=== PATIENT | male | born 1995 | race Caucasian/White ===

== ENCOUNTER 2020-12-24 12:23 | Emergency (ER) | payer OTHER ==
[~2020-12-24] VITALS: Ht 175.2 cm; Wt 150.0 kg
[2020-12-24 12:59] LABS: BASOPHILS % (AUTO) 1 % (0-10); EOSINOPHILS % (AUTO) 0 % (0-10); HEMATOCRIT 34 % (40-54); HEMOGLOBIN 11.5 g/dL (13.3-17.7); LYMPHOCYTES # (AUTO) 0.3 10^3/uL (1.0-4.0); LYMPHOCYTES % (AUTO) 5 % (12-44); MEAN CORPUSCULAR HEMOGLOBIN 33 pg (25-34); MEAN CORPUSCULAR HGB CONC 34 g/dL (32-36); MEAN CORPUSCULAR VOLUME 96 fL (80-99); MEAN PLATELET VOLUME 9.1 fL (9.0-12.2); MONOCYTES # (AUTO) 0.6 10^3/uL (0.0-1.0); MONOCYTES % (AUTO) 12 % (0-12); NEUTROPHILS # (AUTO) 4.5 10^3/uL (1.8-7.8); NEUTROPHILS % (AUTO) 82 % (42-75); PLATELET COUNT 187 10^3/uL (130-400); WHITE BLOOD COUNT 5.5 10^3/uL (4.3-11.0)
[2020-12-24] MEDS ORDERED: ONDANSETRON 4 MG/2 ML (SDV) Z0FRAN IVP ONE ×2 (13:00→21:00)
[2020-12-24] MEDS ORDERED: ACETAMINOPHEN 500 MG TAB (TYLENOL) PO ONE (13:00)
[2020-12-24] MEDS ORDERED: fentaNYL INJ 100 MCG/2 ML AMP IVP ONE ×3 (13:00→21:30)
[2020-12-24] MEDS ORDERED: LOPERAMIDE 2 MG (IMODIUM) TABLET PO ONE (13:00)
[2020-12-24] MEDS ORDERED: LACTATED RINGERS 1,000 ML IV ONE (13:00)
[2020-12-24] MEDS ORDERED: FAMOTIDINE 20MG/2ML IV (PEPCID) IVP ONE (13:00)
[2020-12-24 13:15] LABS: ALBUMIN 3.9 GM/DL (3.2-4.5); POTASSIUM 3.9 MMOL/L (3.6-5.0)
[2020-12-24 13:18] LABS: TOTAL PROTEIN 6.7 GM/DL (6.4-8.2)
[2020-12-24 13:19] LABS: BILIRUBIN,TOTAL 0.6 MG/DL (0.1-1.0)
[2020-12-24 13:20] LABS: FIBRIN DEGRADATION PRODUCTS 0.45 UG/ML (0.00-0.49)
[2020-12-24 13:21] LABS: CREATININE SERUM 2.49 MG/DL (0.60-1.30)
[2020-12-24 13:24] LABS: MAGNESIUM 1.8 MG/DL (1.6-2.4)
[2020-12-24 13:34] LABS: LYMPHOCYTES % (MANUAL) 3 %; MONOCYTES % (MANUAL) 7 %; NEUTROPHILS % (MANUAL) 90 %; RBC MORPH NORMAL
--- NOTE | 2020-12-24 13:38 | Diagnostic Imaging Report ---
INDICATION: Covid positive sepsis. AP view of the chest is obtained. COMPARISON: No previous study is available for comparison at this time. FINDINGS: Heart size and pulmonary vasculature are within normal limits, and the lungs are clear, bilaterally. IMPRESSION: Unremarkable chest. Dictated by: Dictated on workstation # [id number]
[2020-12-24] MEDS ORDERED: NS IV 1000 ML 1,000 ML IV SCH ×2 (15:15→20:45)
[2020-12-24 15:41] LABS: BILIRUBIN,URINE NEGATIVE (NEGATIVE); CLARITY,URINE CLEAR; COLOR,URINE YELLOW; GLUCOSE, URINE (UA) NEGATIVE (NEGATIVE); KETONES,URINE NEGATIVE (NEGATIVE); LEUKOCYTE ESTERASE ,URINE NEGATIVE (NEGATIVE); NITRITE,URINE NEGATIVE (NEGATIVE); PROTEIN,URINE 3+ (NEGATIVE)
[2020-12-24 15:51] LABS: BACTERIA,URINE NEGATIVE /HPF
--- NOTE | 2020-12-24 15:58 | Diagnostic Imaging Report ---
CLINICAL INDICATION: Patient with IgA nephropathy. Patient COVID positive. Patient with shortness of air, abdominal pain, nausea, vomiting, and diarrhea x2 days. EXAM: Axial CT scan of the abdomen and pelvis performed without IV or enteric contrast. Coronal and sagittal reformatted images are created. Auto Exposure Controls were utilized during the CT exam to meet ALARA standards for radiation dose reduction. COMPARISON: None. FINDINGS: There are partially visualized patchy areas of consolidation and ground-glass opacification involving both lung bases concerning for infectious process. There is a 1.6 cm centrally lucent, peripherally sclerotic area involving the proximal left femoral head/neck junction region anteriorly. This may represent a synovial pit versus other abnormality. There is diffuse low-density seen throughout the liver concerning for diffuse fatty infiltration. Liver is otherwise unremarkable. The spleen, pancreas, gallbladder, and adrenal glands are unremarkable. Both kidneys are unremarkable with no mass, hydronephrosis, or stone. There is no intra-abdominal free air or free fluid. The bladder is fluid filled and unremarkable. Prostate gland is unremarkable. Appendix is unremarkable. There is decompressed appearance throughout the colon noted with mild wall thickening. There is no lymphadenopathy. There is no intestinal obstruction. Stomach is also predominantly decompressed. The extra-abdominal and extrapelvic soft tissue structures are unremarkable. IMPRESSION: 1: There are patchy areas of consolidation and ground-glass opacification involving both lung bases concerning for pneumonia. 2: There is decompressed appearance throughout the colon with wall thickening. This may be related to decompressed state. 3: There is a 1.6 cm centrally lucent and peripherally sclerotic area involving the left femoral head/neck junction region. A synovial pit or osteoid osteoma may be considered. MRI of the left hip with and without contrast would help better evaluate. Also comparison to remote imaging would help better evaluate for chronicity. 4: Diffuse fatty infiltration of the liver. Dictated by: Dictated on workstation # [id number]
[2020-12-24] MEDS ORDERED: CEFEPIME INJECTION 2,000 MG in WATER (STERILE) FOR INJECTION 20 ML IV ONE (16:15)
[2020-12-24] MEDS ORDERED: PROMETHAZINE INJ 25 MG/ML (PHENERGAN) AMP IVP ONE ×2 (17:00→21:45)
[2020-12-24] MEDS ORDERED: AZITHROMYCIN INJECTION 500 MG in NS (IVPB) 250 ML IV ONE (18:00)
--- NOTE | 2020-12-24 18:56 | ED General ---
General Chief Complaint: Fever-Adult/Adol Stated Complaint: COVID+ Nursing Triage Note: Pt ambulatory into ER with complaint of being Covid+, SOA, Abd. Pain, N/V/D x2 days. Pt states that he tested postive yesterday after having symptoms. Pt states that he was trying to go to [facility] to try to get some oral zofran, but started vomiting profusely so he came to ER. Source of Information: Patient Exam Limitations: No Limitations (TIFFANY CERRATO MD) History of Present Illness Date Seen by Provider: Dec 24, 2020 Time Seen by Provider: 12:45 Initial Comments This 25-year-old gentleman presents to the emergency room with complaints of fever, nausea, vomiting, diarrhea, and central abdominal pain for the past 2 days. He tested positive for COVID-19 in the outpatient clinic yesterday. He was fully vaccinated in July but is immunocompromise due to prednisone use. He takes multiple medications for IgA nephropathy including prednisone. He is fairly new to the area. 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 He is febrile and tachycardic at this time and is struggling with diarrhea. He has some shortness of breath and cough but he is not hypoxic at this time. (TIFFANY CERRATO MD) Allergies and Home Medications Allergies Coded Allergies: No Known Drug Allergies (Unverified , 12/24/20) Patient Home Medication List Home Medication List Reviewed: Yes (TIFFANY CERRATO MD) Review of Systems Review of Systems Constitutional: see HPI EENTM: no symptoms reported Respiratory: see HPI Cardiovascular: see HPI Gastrointestinal: see HPI Genitourinary: see HPI Musculoskeletal: no symptoms reported Skin: no symptoms reported Psychiatric/Neurological: No Symptoms Reported Hematologic/Lymphatic: No Symptoms Reported Immunological/Allergic: see HPI (TIFFANY CERRATO MD) Past Kayodks-Lzigui-Jmlgci Hx Patient Social History Tobacco Use?: No Use of E-Cig and/or Vaping dev: No Substance use?: No Alcohol Use?: No Pt feels they are or have been: No (TIFFANY CERRATO MD) Immunizations Up To Date Influenza Vaccine Up-to-Date: No; Not Current Second COVID19 Vaccination Kurtis: July 2020 COVID19 Vaccine 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: [employer] (TIFFANY CERRATO MD) Past Medical History Surgeries: Yes (Renal biopsy) Respiratory: No Cardiac: No Neurological: No Reproductive Disorders: No Genitourinary: Yes (Continue nephropathy) Gastrointestinal: No Musculoskeletal: No Endocrine: Yes (Morbid obesity) HEENT: No Cancer: No Psychosocial: No Integumentary: No (TIFFANY CERRATO MD) Physical Exam-Suspected Sepsis Physical Exam Vital Signs Vital Signs - First Documented 12/24/20 12/25/20 12:28 13:34 Temp 36.6 Pulse 126 Resp 20 B/P (MAP) 129/97 (108) Pulse Ox 93 O2 Delivery Room Air O2 Flow Rate 1.00 (RANGEL ODOM MD) Vital Signs Capillary Refill : Less Than 3 Seconds (TIFFANY CERRATO MD) Blood Pressure Mean: 108 Height, Weight, BMI Height: '" Weight: lbs. oz. kg; 48.00 BMI Method: General Appearance: WD/WN, Mild Distress, Obese HEENT: PERRL/EOMI, Normal ENT Inspection, Other (Oropharynx somewhat dry) Neck: Normal Inspection Respiratory: Lungs Clear, No Accessory Muscle Use, No Respiratory Distress; No Crackles; Decreased Breath Sounds; No Wheezing Cardiovascular: No Edema, Normal Peripheral Pulses, Tachycardia Gastrointestinal: Normal Bowel Sounds, Soft; No Distended; Tenderness (Generalized central abdominal tenderness) Extremity: Normal Inspection, No Pedal Edema Neurologic/Psychiatric: Alert, Oriented x3, No Motor/Sensory Deficits, Normal Mood/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, 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 Norm as Tested Skin: normal color, warm/dry (TIFFANY CERRATO MD) Focused Exam Lactate Level 12/24/20 12:46: Lactic Acid Level 1.31 (RANGEL ODOM MD) Progress/Results/Core Measures Suspected Sepsis SIRS Temperature: Pulse: 126 Respiratory Rate: 20 Laboratory Tests 12/24/20 12:46: White Blood Count 5.5 12/25/20 03:15: White Blood Count 4.9 Blood Pressure 129 /97 Mean: 108 12/24/20 12:46: Lactic Acid Level 1.31 Laboratory Tests 12/24/20 12:46: Creatinine 2.49H, INR Comment 1.0, Platelet Count 187, Total Bilirubin 0.6 12/25/20 03:15: Creatinine 2.40H, Platelet Count 154, Total Bilirubin 0.4 (TIFFANY CERRATO MD) Results/Orders Lab Results Laboratory Tests Test 12/24/20 12:46 12/24/20 15:34 12/25/20 03:15 Range/Units White Blood Count 5.5 4.9 4.3-11.0 10^3/uL Red Blood Count 3.52 L 3.04 L 4.30-5.52 10^6/uL Hemoglobin 11.5 L 9.9 L 13.3-17.7 g/dL Hematocrit 34 L 30 L 40-54 % Mean Corpuscular Volume 96 97 80-99 fL Mean Corpuscular Hemoglobin 33 33 25-34 pg Mean Corpuscular Hemoglobin Concent 34 33 32-36 g/dL Red Cell Distribution Width 15.0 H 14.9 H 10.0-14.5 % Platelet Count 187 154 130-400 10^3/uL Mean Platelet Volume 9.1 8.7 L 9.0-12.2 fL Immature Granulocyte % (Auto) 1 1 % Neutrophils (%) (Auto) 82 H 84 H 42-75 % Lymphocytes (%) (Auto) 5 L 5 L 12-44 % Monocytes (%) (Auto) 12 10 0-12 % Eosinophils (%) (Auto) 0 0 0-10 % Basophils (%) (Auto) 1 0 0-10 % Neutrophils # (Auto) 4.5 4.1 1.8-7.8 10^3/uL Lymphocytes # (Auto) 0.3 L 0.2 L 1.0-4.0 10^3/uL Monocytes # (Auto) 0.6 0.5 0.0-1.0 10^3/uL Eosinophils # (Auto) 0.0 0.0 0.0-0.3 10^3/uL Basophils # (Auto) 0.0 0.0 0.0-0.1 10^3/uL Immature Granulocyte # (Auto) 0.1 0.1 0.0-0.1 10^3/uL Neutrophils % (Manual) 90 82 % Lymphocytes % (Manual) 3 4 % Monocytes % (Manual) 7 5 % Blood Morphology Comment NORMAL Prothrombin Time 14.0 12.2-14.7 SEC INR Comment 1.0 0.8-1.4 Activated Partial Thromboplast Time 41 H 24-35 SEC D-Dimer 0.45 0.00-0.49 UG/ML Sodium Level 142 136 135-145 MMOL/L Potassium Level 3.9 4.1 3.6-5.0 MMOL/L Chloride Level 105 105 98-107 MMOL/L Carbon Dioxide Level 19 L 17 L 21-32 MMOL/L Anion Gap 18 H 14 5-14 MMOL/L Blood Urea Nitrogen 19 H 17 7-18 MG/DL Creatinine 2.49 H 2.40 H 0.60-1.30 MG/DL Estimat Glomerular Filtration Rate 32 33 BUN/Creatinine Ratio 8 7 Glucose Level 106 H 78 70-105 MG/DL Lactic Acid Level 1.31 0.50-2.00 MMOL/L Calcium Level 9.0 8.2 L 8.5-10.1 MG/DL Corrected Calcium 9.1 8.6 8.5-10.1 MG/DL Magnesium Level 1.8 1.6-2.4 MG/DL Total Bilirubin 0.6 0.4 0.1-1.0 MG/DL Aspartate Amino Transf (AST/SGOT) 36 H 134 H 5-34 U/L Alanine Aminotransferase (ALT/SGPT) 58 H 155 H 0-55 U/L Alkaline Phosphatase 27 L 25 L 40-136 U/L C-Reactive Protein High Sensitivity 17.04 H 18.82 H 0.00-0.50 MG/DL Total Protein 6.7 5.9 L 6.4-8.2 GM/DL Albumin 3.9 3.5 3.2-4.5 GM/DL Lipase 63 8-78 U/L Procalcitonin 57.26 H 79.04 H <0.10 NG/ML Urine Color YELLOW Urine Clarity CLEAR Urine pH 6.0 5-9 Urine Specific [place] >=1.030 1.016-1.022 Urine Protein 3+ H NEGATIVE Urine Glucose (UA) NEGATIVE NEGATIVE Urine Ketones NEGATIVE NEGATIVE Urine Nitrite NEGATIVE NEGATIVE Urine Bilirubin NEGATIVE NEGATIVE Urine Urobilinogen 0.2 < = 1.0 MG/DL Urine Leukocyte Esterase NEGATIVE NEGATIVE Urine RBC (Auto) 3+ H NEGATIVE Urine RBC 2-5 H /HPF Urine WBC NONE /HPF Urine Squamous Epithelial Cells NONE /HPF Urine Crystals NONE /LPF Urine Bacteria NEGATIVE /HPF Urine Casts NONE /LPF Urine Mucus NEGATIVE /LPF Urine Culture Indicated CULTURE PENDING Band Neutrophils 9 % Microcytosis SLIGHT Macrocytosis SLIGHT (RANGEL ODOM MD) Micro Results Microbiology 12/24/20 Urine Culture - Final, Complete NO GROWTH 12/24/20 Blood Culture - Preliminary, Resulted No growth 12/24/20 Blood Culture - Preliminary, Resulted No growth (RANGEL ODOM MD) My Orders Orders - RANGEL ODOM MD Ns Iv 1000 Ml (Sodium Chloride 0.9%) (12/24/20 20:45) Ondansetron Injection (Zofran Injectio (12/24/20 21:00) Fentanyl Inj (Sublimaze Injection) (12/24/20 21:26) Promethazine Injection (Phenergan Injec (12/24/20 21:45) Ns Iv 500 Ml (Sodium Chloride 0.9%) (12/24/20 21:45) Lorazepam Injection (Ativan Injection) (12/24/20 23:19) Lorazepam Injection (Ativan Injection) (12/24/20 23:21) Fentanyl Inj (Sublimaze Injection) (12/25/20 01:00) Ns Iv 1000 Ml (Sodium Chloride 0.9%) (12/25/20 01:15) Hyoscyamine Sl Tablet (Levsin Sl Tablet) (12/25/20 01:15) Diphenhydramine Tablet (Benadryl Tablet) (12/25/20 03:00) Cbc With Automated Diff (12/25/20 04:00) Comprehensive Metabolic Panel (12/25/20 04:00) Procalcitonin (Pct) (12/25/20 04:00) Manual Differential (12/25/20 03:15) Ibuprofen Tablet (Motrin Tablet) (12/25/20 04:15) Cefepime Injection (Maxipime Injection) (12/25/20 04:15) Promethazine Injection (Phenergan Injec (12/25/20 04:30) Loperamide Tablet (Imodium Tablet) (12/25/20 04:24) Loperamide Tablet (Imodium Tablet) (12/25/20 04:27) Promethazine Injection (Phenergan Injec (12/25/20 04:27) (RANGEL ODOM MD) Medications Given in ED (RANGEL ODOM MD) Vital Signs/I&O (RANGEL ODOM MD) Vital Signs/I&O Capillary Refill : Less Than 3 Seconds (TIFFANY CERRATO MD) Blood Pressure Mean: 108 Progress Note #1: Time: 19:01 Progress Note Patient was seen and evaluated. Septic work-up was pursued. Renal function was found to be near baseline with a GFR of 32. Patient states 32 is typical for him. Tachycardia was treated with IV fluids and Tylenol. Rate has improved significantly after 2 L. Zofran and Phenergan have been used to treat the nausea. Pain was treated with 50 mcg of fentanyl which has caused some hypoxia. He was previously on room air and satting 94% but is now hypoxic after the fentanyl. No source of bacterial infection has been identified. CT findings of the lungs are consistent with COVID-19. No abdominal pathology to explain his pain or fever was identified. There is concern that this patient is immunocompromised and his procalcitonin is 57. There is presumed sepsis. Cefepime and azithromycin have been ordered for empiric treatment. I have discussed this case with Dr. Duff, hospitalist. She is reluctant to admit this patient to our facility due to his nephrology needs. Presently I have not been able to find an accepting facility for transfer. [facility] in [place], [facility] in [facility] and [facility] in [place], [facility], [facility] and [facility] have all declined transfer due to bed capacity. I have enlisted the assistance of the [place] [facility] hotline for the [facility]. They are still working on finding a bed. Case is currently being reviewed by [facility]. Patient is stable at this time. Care of this patient is being transitioned to Dr. Odom at this time. Progress Note #2: Time: 10:55 Progress Note I assumed care of this patient from Dr. Odom at 0600. He is stable at this time but continues to have some mild tachycardia and has been intermittently febrile. Diarrhea has continued through the night. Diarrhea has been managed with Imodium. IV fluids were administered. He has received a second dose of cefepime. I contacted Dr. Cameron, infectious disease specialist at [facility]. We discussed treatment options. She recommended starting remdesivir due to his immunocompromise state and risk factors. She also advised obtaining a tick panel and starting doxycycline. She recommended dexamethasone as patient has been without his steroids for a few days and may need stress dosing of steroids. Finally, she recommended daptomycin for empiric MRSA coverage due to his immunocompromise state. Patient states he actually feels more comfortable than he did yesterday. Oxygen saturations have been normal on low-flow nasal cannula. He has good continued nasal cannula due to desaturations when he sleeps or when he receives pain medications. He had a moderate elevation in his transaminases today as well as a jump in his procalcitonin to 79. Sepsis is presumed although no source of bacterial infection has been identified. Patient is willing to transfer wherever he can receive appropriate care. The [facility] hotline has been working artificially to find him a bed placement. I discussed the case with Dr. Tong at [facility] who has accepted trans claudio. They have nephrology and dialysis services at this facility. (TIFFANY CERRATO MD) Progress Note #1: Time: 20:57 Progress Note I did speak again with [facility] and at 2011 got a declination from the [facility]. At 2034 [facility] in [place] declined. 2051 [facility] transfer [facility] out of [place] called and they are speaking with their physician about the possibility of a bed at one of their campuses in [place]. Pending a return call at this time. Patient remains tachycardic. Blood pressure is good. He is getting a repeat dose of 8 mg of Zofran currently on another liter of fluids. 2139 Patient got his third liter of fluids and 8 mg of Zofran. Was notified by the nurse that he is continuing to have nausea and vomiting. Will order a little bit more fluid, 500 cc of normal saline and 25 mg of Phenergan IV to try and alleviate his symptoms. 108 Patient checked on after having called out multiple times for pain medicine for his abdomen pain. Patient is continuing to be nauseated its been almost 4 hours since he had Phenergan. He was given a little Ativan a couple of hours ago. Starting him on some maintenance fluids normal saline 125 cc an hour. Going to give him some Levsin as well as another dose of fentanyl. He still little tachycardic but in no respiratory distress. Still pending acceptance at an outside facility. [facility] declined him at 2059. At 2254 [place] and [place] said no. They did potentially find a bed in [place] at 2337 however I declined this as this is a 10-hour trip. [place] [facility] stated that they would continue to look every 4 hours at closer hospitals. Progress Note #2: Time: 04:09 Progress Note [place] [facility] checked back in, still no local beds in [facility]. They are going to recheck [place]. Vital signs currently heart rate 126 SPO2 on 2 L 97% respiratory rate 33 temperature 39.2 will give 600 mg of ibuprofen as a.m. labs have shown an increase in liver functions over the night. CO2 on chemistry is a little bit lower currently. Procalcitonin is pending hemoglobin has dropped about a gram. Patient resting comfortably at the moment. (RANGEL ODOM MD) Diagnostic Imaging Diagonstic Imaging: Xray Plain Films/CT/US/NM/MRI: chest Comments [facility] [id number] PT STATUS: REG ER : 1995 PHYSICIAN: TIFFANY CERRATO MD ADMIT DATE: 12/24/20/ER Draft Date of Exam:12/24/20 CHEST 1 VIEW, AP/PA ONLY INDICATION: Covid positive sepsis. AP view of the chest is obtained. COMPARISON: No previous study is available for comparison at this time. FINDINGS: Heart size and pulmonary vasculature are within normal limits, and the lungs are clear, bilaterally. IMPRESSION: Unremarkable chest. Dictated on workstation # [id number] Dict: 12/24/20 1335 Trans: 12/24/20 1337 [facility] [id number] Interpreted by: MIGUEL ROBERTS MD Reviewed: Reviewed by Me Diagonstic Imaging: CT Plain Films/CT/US/NM/MRI: abdomen, pelvis Comments CT viewed by me and report reviewed. See report below: [facility] [id number] PT STATUS: REG ER : 1995 PHYSICIAN: TIFFANY CERRATO MD ADMIT DATE: 12/24/20/ER Signed Date of Exam:12/24/20 CT ABDOMEN/PELVIS WO CLINICAL INDICATION: Patient with IgA nephropathy. Patient COVID positive. Patient with shortness of air, abdominal pain, nausea, vomiting, and diarrhea x2 days. EXAM: Axial CT scan of the abdomen and pelvis performed without IV or enteric contrast. Coronal and sagittal reformatted images are created. Auto Exposure Controls were utilized during the CT exam to meet ALARA standards for radiation dose reduction. COMPARISON: None. FINDINGS: There are partially visualized patchy areas of consolidation and ground-glass opacification involving both lung bases concerning for infectious process. There is a 1.6 cm centrally lucent, peripherally sclerotic area involving the proximal left femoral head/neck junction region anteriorly. This may represent a synovial pit versus other abnormality. There is diffuse low-density seen throughout the liver concerning for diffuse fatty infiltration. Liver is otherwise unremarkable. The spleen, pancreas, gallbladder, and adrenal glands are unremarkable. Both kidneys are unremarkable with no mass, hydronephrosis, or stone. There is no intra-abdominal free air or free fluid. The bladder is fluid filled and unremarkable. Prostate gland is unremarkable. Appendix is unremarkable. There is decompressed appearance throughout the colon noted with mild wall thickening. There is no lymphadenopathy. There is no intestinal obstruction. Stomach is also predominantly decompressed. The extra-abdominal and extrapelvic soft tissue structures are unremarkable. IMPRESSION: 1: There are patchy areas of consolidation and ground-glass opacification involving both lung bases concerning for pneumonia. 2: There is decompressed appearance throughout the colon with wall thickening. This may be related to decompressed state. 3: There is a 1.6 cm centrally lucent and peripherally sclerotic area involving the left femoral head/neck junction region. A synovial pit or osteoid osteoma may be considered. MRI of the left hip with and without contrast would help better evaluate. Also comparison to remote imaging would help better evaluate for chronicity. 4: Diffuse fatty infiltration of the liver. Dictated by: Dictated on workstation # [id number] Dict: 12/24/20 1533 Trans: 12/24/20 1713 [id number] Interpreted by: KARTHIKEYAN DEAL MD Electronically signed by: KARTHIKEYAN DEAL MD 12/24/20 1713 Reviewed: Reviewed by Wa (TIFFANY CERRATO MD) Departure Impression Primary Impression: Sepsis Qualified Codes: A41.9 - Sepsis, unspecified organism Additional Impressions: COVID-19 IgA nephropathy Nausea vomiting and diarrhea Generalized abdominal pain Disposition: 02 XFER SHT-TRM HOSP Condition: Stable Transfer Transfer Reason: Exceeds level of care Time Spoke to Accepting Phy: 10:[address] Sandhu at [facility] accepts patient. Transfer Facility: [facility] (TIFFANY CERRATO MD) TIFFANY CERRATO MD Dec 24, 2020 18:56 RANGEL ODOM MD Dec 24, 2020 20:58
[2020-12-24] MEDS ORDERED: fentaNYL INJ 100 MCG/2 ML AMP ONE (21:26)
[2020-12-24] MEDS ORDERED: NS IV 500 ML 500 ML IV SCH (21:45)
[2020-12-24] MEDS ORDERED: LORazepam INJ 2 MG/ML (ATIVAN) VIAL IVP STA (23:19)
[2020-12-24] MEDS ORDERED: LORazepam INJ 2 MG/ML (ATIVAN) VIAL ONE (23:21)
[2020-12-25] MEDS ORDERED: fentaNYL INJ 100 MCG/2 ML AMP IVP ONE (01:00)
[2020-12-25] MEDS ORDERED: NS IV 1000 ML 1,000 ML IV SCH (01:15)
[2020-12-25] MEDS ORDERED: HYOSCYAMINE 0.125 MG (LEVSIN) TAB PO ONE (01:15)
[2020-12-25] MEDS ORDERED: diphenhydrAMINE 25 MG TAB (BENADRYL) PO ONE (03:00)
[2020-12-25 03:30] LABS: BASOPHILS % (AUTO) 0 % (0-10); EOSINOPHILS % (AUTO) 0 % (0-10); HEMATOCRIT 30 % (40-54); HEMOGLOBIN 9.9 g/dL (13.3-17.7); LYMPHOCYTES # (AUTO) 0.2 10^3/uL (1.0-4.0); LYMPHOCYTES % (AUTO) 5 % (12-44); MEAN CORPUSCULAR HEMOGLOBIN 33 pg (25-34); MEAN CORPUSCULAR HGB CONC 33 g/dL (32-36); MEAN CORPUSCULAR VOLUME 97 fL (80-99); MEAN PLATELET VOLUME 8.7 fL (9.0-12.2); MONOCYTES # (AUTO) 0.5 10^3/uL (0.0-1.0); MONOCYTES % (AUTO) 10 % (0-12); NEUTROPHILS # (AUTO) 4.1 10^3/uL (1.8-7.8); NEUTROPHILS % (AUTO) 84 % (42-75); PLATELET COUNT 154 10^3/uL (130-400); WHITE BLOOD COUNT 4.9 10^3/uL (4.3-11.0)
[2020-12-25 03:41] LABS: ALBUMIN 3.5 GM/DL (3.2-4.5); POTASSIUM 4.1 MMOL/L (3.6-5.0)
[2020-12-25 03:42] LABS: CALCIUM 8.2 MG/DL (8.5-10.1)
[2020-12-25 03:43] LABS: TOTAL PROTEIN 5.9 GM/DL (6.4-8.2)
[2020-12-25 03:45] LABS: BILIRUBIN,TOTAL 0.4 MG/DL (0.1-1.0)
[2020-12-25 03:47] LABS: CREATININE SERUM 2.4 MG/DL (0.60-1.30)
[2020-12-25 03:50] LABS: BAND NEUTROPHILS 9 %; LYMPHOCYTES % (MANUAL) 4 %; MICROCYTOSIS SLIGHT; MONOCYTES % (MANUAL) 5 %; NEUTROPHILS % (MANUAL) 82 %
[2020-12-25] MEDS ORDERED: IBUPROFEN 600 MG (MOTRIN) TAB PO ONE (04:15)
[2020-12-25] MEDS ORDERED: CEFEPIME INJECTION 1,000 MG in WATER (STERILE) FOR INJECTION 10 ML IV ONE (04:15)
[2020-12-25] MEDS ORDERED: LOPERAMIDE 2 MG (IMODIUM) TABLET PO STA (04:24)
[2020-12-25] MEDS ORDERED: LOPERAMIDE 2 MG (IMODIUM) TABLET ONE (04:27)
[2020-12-25] MEDS ORDERED: PROMETHAZINE INJ 25 MG/ML (PHENERGAN) AMP ONE (04:27)
[2020-12-25] MEDS ORDERED: PROMETHAZINE INJ 25 MG/ML (PHENERGAN) AMP IVP ONE (04:30)
[2020-12-25] MEDS ORDERED: LOPERAMIDE 2 MG (IMODIUM) TABLET PO ONE ×2 (07:00→14:00)
[2020-12-25] MEDS ORDERED: REMDESIVIR 200 MG/NS 250 ML IVPB IV ONE ×2 (07:15)
[2020-12-25] MEDS ORDERED: DOXYCYCLINE INJECTION 100 MG in NS (IVPB) 100 ML IV SCH (07:22)
[2020-12-25] MEDS ORDERED: SODIUM CHLORIDE IV SCH ×2 (09:00)
[2020-12-25] MEDS ORDERED: DAPTOMYCIN IV SCH ×2 (09:00)
[2020-12-25] MEDS ORDERED: CEFEPIME 1,000 MG/SWFI 10 ML IV PUSH IV SCH ×2 (10:00)
[2020-12-25 14:20] VITALS: BP 141/121
[2020-12-26] MEDS ORDERED: REMDESIVIR 100 MG/NS 250 ML IVPB IV SCH ×2 (08:00)
== END 2020-12-25 14:19 | disposition short-term general hospital (02) ==
LOC: ER 12:30
DX: A41.9 Sepsis, unspecified organism (principal); U07.1 COVID-19; N02.8 Recurrent and persistent hematuria with other morphologic changes; R11.2 Nausea with vomiting, unspecified; R10.84 Generalized abdominal pain; E66.01 Morbid (severe) obesity due to excess calories; Z73.0 Burn-out; Z68.42 Body mass index [BMI] 45.0-49.9, adult; Z79.52 Long term (current) use of systemic steroids
CPT/HCPCS: 36415; 71045; 74176; 80053; 81000; 83605; 83690; 83735; 84145; 85007; 85027; 85379; 85610; 85730; 86141; 86618; 86666; 86668; 86757; 87040; 87088